=== PATIENT | male | born 1980 | race American Indian/Alaskan Native ===

== ENCOUNTER 2017-01-20 10:35 | Emergency (ER) | payer BC ==
[2017-01-20 11:01] VITALS: BP 138/95
--- NOTE | 2017-01-20 13:33 | Emergency Department Report ---
Entered by JESSIE DOZIER, acting as scribe for KALEB YEUNG PA. ED ENT HPI - General Chief complaint: Dental/Oral Stated complaint: TOOTHACHE Time Seen by Provider: 01/20/17 12:32 Source: patient Mode of arrival: Ambulatory Limitations: No Limitations - History of Present Illness Initial comments: 36 y/o male presents c/o a 9/10 throbbing, intermittent tooth ache that started again last week. Additional Sx include cramping abd pain, but pt denies fever, N/V, chest pain, SOB, or abd bleeding. Positive for history of similar symptoms and notes that he has seen a dentist for the problem, but refused antibiotics and treatment due to high kaye. No additional Sx at this time. Denies bleeding or drainage. MD complaint: tooth pain -: week(s) (1 week) Location: other (back left molar) Severity: mild Quality: other (throbbing) Consistency: constant Improves with: none Context- Dental: other (pt saw dentist but refused antibiotics due to cost) Associated Symptoms: other (carmping abd pain, denies fever, N/V, chest pain, abd bleeding). denies: fever - Related Data Previous Rx's Medication Instructions Recorded Last Taken Type Naproxen [Naprosyn] 500 mg PO BID #30 tablet 08/11/14 Unknown Rx Ranitidine HCl [Ranitidine 150mg 150 mg PO BID #60 cap 08/11/14 Unknown Rx Cap] Tramadol HCl [traMADol] 50 mg PO HS PRN #25 tablet 08/11/14 Unknown Rx Acetaminophen/Codeine [Tylenol 1 tab PO Q6H PRN #12 tab 01/20/17 Unknown Rx /Codeine # 3 tab] Penicillin Vk [Veetids TAB] 500 mg PO QID #56 tablet 01/20/17 Unknown Rx Allergies Allergy/AdvReac Type Severity Reaction Status Date / Time No Known Allergies Allergy Unverified 08/11/14 19:00 ED Dental HPI - General Chief complaint: Dental/Oral Stated complaint: TOOTHACHE Time Seen by Provider: 01/20/17 12:32 Source: patient Mode of arrival: Ambulatory Limitations: No Limitations - Related Data Previous Rx's Medication Instructions Recorded Last Taken Type Naproxen [Naprosyn] 500 mg PO BID #30 tablet 08/11/14 Unknown Rx Ranitidine HCl [Ranitidine 150mg 150 mg PO BID #60 cap 08/11/14 Unknown Rx Cap] Tramadol HCl [traMADol] 50 mg PO HS PRN #25 tablet 08/11/14 Unknown Rx Acetaminophen/Codeine [Tylenol 1 tab PO Q6H PRN #12 tab 01/20/17 Unknown Rx /Codeine # 3 tab] Penicillin Vk [Veetids TAB] 500 mg PO QID #56 tablet 01/20/17 Unknown Rx Allergies Allergy/AdvReac Type Severity Reaction Status Date / Time No Known Allergies Allergy Unverified 08/11/14 19:00 ED Review of Systems Comment: All other systems reviewed and negative Constitutional: denies: chills, fever Eyes: denies: eye pain ENT: dental pain. denies: ear pain, throat pain, congestion Respiratory: denies: cough, shortness of breath, wheezing Cardiovascular: denies: chest pain, palpitations Endocrine: no symptoms reported Gastrointestinal: abdominal pain. denies: nausea, vomiting, other (abd bleeding ) Neurological: denies: headache, weakness ED Past Medical Hx - Past Medical History Previous Medical History?: No Additional medical history: GERD - Surgical History Past Surgical History?: Yes Additional Surgical History: Left patella fx - Social History Smoking Status: Never Smoker Substance Use Type: None - Medications Home Medications: Home Medications Medication Instructions Recorded Confirmed Last Taken Type Naproxen [Naprosyn] 500 mg PO BID #30 tablet 08/11/14 Unknown Rx Ranitidine HCl [Ranitidine 150mg 150 mg PO BID #60 cap 08/11/14 Unknown Rx Cap] Tramadol HCl [traMADol] 50 mg PO HS PRN #25 tablet 08/11/14 Unknown Rx Acetaminophen/Codeine [Tylenol 1 tab PO Q6H PRN #12 tab 01/20/17 Unknown Rx /Codeine # 3 tab] Penicillin Vk [Veetids TAB] 500 mg PO QID #56 tablet 01/20/17 Unknown Rx ED Physical Exam - General Limitations: No Limitations - Other Other exam information: GENERAL: The patient is well-developed and well-nourished. Patient is in NAD. HEAD: Normocephalic. Atraumatic. DENTAL- Tenderness to palpation of tooth number 18, positive for chipped tooth. No drainage or bleeding. No dental abscess noted. EYES: PERRL. NECK: Supple, nontender, without lymphadenopathy. CHEST/LUNGS: Clear to auscultation throughout. HEART/CARDIOVASCULAR: Regular rate and rhythm. No murmurs, rubs or gallops. ABDOMEN: Abdomen is soft, nontender. Bowel sounds normoactive. No guarding or rebound tenderness. EXTREMITIES:Peripheral pulses intact. Capillary refill less than 2 seconds. NEURO: Alert and oriented x 3. Normal gait. ED Course Vital Signs 01/20/17 10:43 Temperature 98.4 F Pulse Rate 84 Respiratory 18 Rate Blood Pressure 138/95 O2 Sat by Pulse 99 Oximetry ED Medical Decision Making - Lab Data Vital Signs 01/20/17 10:43 Temperature 98.4 F Pulse Rate 84 Respiratory 18 Rate Blood Pressure 138/95 O2 Sat by Pulse 99 Oximetry - Medical Decision Making 36 y/o male presents c/o a 9/10 throbbing, intermittent tooth ache that started again last week. Patient is in no acute distress at this time. He will be discharged home and is encouraged to follow up with a primary care provider. He will be sent home on penicillin VK and Tylenol 3 and is encouraged to return to the emergency room for any worsening symptoms. ED Disposition Clinical Impression: Toothache Dental injury Qualifiers: Encounter type: initial encounter Qualified Code(s): S09.93XA - Unspecified injury of face, initial encounter Disposition: DISCHARGED TO HOME OR SELFCARE Is pt being admited?: No Does the pt Need Aspirin: No Condition: Stable Instructions: Toothache (ED) Additional Instructions: Follow-up with primary care provider and dentist. Return to the emergency department if symptoms worsen. Prescriptions: Acetaminophen/Codeine [Tylenol /Codeine # 3 tab] 1 tab PO Q6H PRN #12 tab PRN Reason: Pain Penicillin Vk [Veetids TAB] 500 mg PO QID #56 tablet Referrals: PRIMARY CARE, [Primary Care Provider] - 3-5 Days [facility] [Outside] - 3-5 Days [facility] [Outside] - 3-5 Days Forms: Work/School Release Form(ED) Time of Disposition: 13:28 This documentation as recorded by the JACOBY doherty RYAN,accurately reflects the service I personally performed and the decisions made by ,KALEB YEUNG PA.
== END 2017-01-20 13:38 | disposition home or self-care (01) ==
LOC: ED 10:35
DX: S09.93XA Unspecified injury of face, initial encounter (principal); K08.89 Other specified disorders of teeth and supporting structures; X58.XXXA Exposure to other specified factors, initial encounter; Y93.9 Activity, unspecified; Y92.9 Unspecified place or not applicable; Y99.9 Unspecified external cause status
CPT/HCPCS: 99282